=== PATIENT | male | born 1965 | race Caucasian/White ===

== ENCOUNTER 2020-06-27 09:01 | Outpatient (RCR) | payer MEDICAID, SELFPAY ==
--- NOTE | 2020-06-27 14:00 | RT.EKG_ITS ---
APPROVED REPORT Exam: Resting ECG Patient Location: O HR:73 bpm ECG Measurements Heart Rate 73 AXIS ID 142 P 38 QRSd 122 QRS 68 QT 360 T 168 QTc 396 Conclusion Sinus rhythm...normal P axis, V-rate 60- 99 Probable LVH with secondary repol abnrm...multiple LVH criteria
== END 2020-07-07 23:59 | disposition home or self-care (01) ==
LOC: CR 09:01
PROVIDERS: PCP Physician Assistant; Visit Provider Family Medicine
DX: Z53.9 Procedure and treatment not carried out, unspecified reason (principal)

== ENCOUNTER 2020-06-28 07:45 | Outpatient (CLI) | payer MEDICAID, SELFPAY ==
[2020-06-30 09:53] LABS: COVID-19 RT-PCR Result NEGATIVE (Negative)
== END 2020-06-28 08:05 ==
PROVIDERS: PCP Physician Assistant; Visit Provider Family Medicine
DX: Z11.59 Encounter for screening for other viral diseases (principal); Z01.818 Encounter for other preprocedural examination
CPT/HCPCS: U0003

== ENCOUNTER 2020-07-16 09:00 | Outpatient (RCR) | payer MEDICAID, SELFPAY | END 2020-08-06 23:59 | disposition home or self-care (01) | LOC: CR 09:00 | PROVIDERS: PCP Physician Assistant; Visit Provider Family Medicine | DX: Z95.4 Presence of other heart-valve replacement (principal); Z51.89 Encounter for other specified aftercare; Z95.1 Presence of aortocoronary bypass graft | CPT/HCPCS: S9472 ==